=== PATIENT | female | born 1965 | race Caucasian/White ===

== ENCOUNTER 2021-01-20 22:48 | Emergency (ER) | payer OTHER, SELFPAY ==
[2021-01-20 22:58] VITALS: BP 139/79; PULSE 88; RESP 20; TEMP 36.6; O2SAT 100
--- NOTE | 2021-01-20 23:10 | ED_ITS ---
HPI - Skin/Abscess/Foreign Bdy General Chief complaint: Skin/Abscess/Foreign Body Stated complaint: red bump on chest is getting bigger Time Seen by Provider: 01/20/21 23:09 Source: patient Mode of arrival: Ambulatory Limitations: no limitations History of Present Illness HPI narrative: This is a 55-year-old female who comes emergency department for some concern for infection. Patient had a small bump which she believed was probably a cyst. Had a small amount of white material that she squeezed out on Monday.She then developed redness and swelling and pain that has extended several cm outwards over the last 3 days. Patient denies fevers. She denies any other symptoms. She denies any major medical issues besides taking a statin for dyslipidemia and medications for anxiety/depression. She denies any al lergies to medications. She has not had any additional drainage. Related Data Previous Rx's Medication Instructions Recorded cephalexin 500 mg capsule 500 mg PO Q6H #20 cap 01/20/21 Allergies Allergy/AdvReac Type Severity Reaction Status Date / Time Sulfa (Sulfonamide Allergy Unknown Verified 01/20/21 23:40 Antibiotics) Review of Systems Review of Systems ROS Unobtainable: All systems reviewed & are unremarkable except as noted in HPI and below Exam Narrative Exam Narrative: GENERAL: Alert and oriented x three, female in mild distress. HEENT: Head normocephalic, atraumatic, EOMI, pupils reactive, face symmetric, moist mucous membranes NECK: Supple, full range of motion CARDIOVASCULAR: Regular rate and rhythm without murmurs, rubs or gallops. Patient has a circular area of induration on her anterior chest that is about 3 cm in size. Indurated. With no fluctuance. Other skin changes noted. There is no obvious wound or open area of drainage. RESPIRATORY: Breath sounds equal bilaterally, no wheezes rales or rhonchi. ABDOMEN: Soft, nontender. Normoactive bowel sounds all 4 quadrants. No guarding or rebound, rigidity, no mass : No CVA tenderness EXTREMITIES: Normal range of motion, no clubbing or edema. Neurovascularly intact NEUROLOGICAL: Cranial nerves II through XII grossly intact. Moving all extremities SKIN: Warm, dry, no petechiae, no rashes or lesions other than noted above. Initial Vital Signs Initial Vital Signs: Vital Signs Temperature 97.8 F 01/20/21 22:58 Pulse Rate 88 10/13/21 22:58 Respiratory Rate 20 01/20/21 22:58 Blood Pressure 139/79 01/20/21 22:58 Pulse Oximetry 100 01/20/21 22:58 Course Orders Ordered: Discontinued Medications Cefazolin Sodium (Cephalexin 250 Mg Prepack) 1 bottle MIS SEEINSTR ONE Stop: 01/20/21 23:22 Last Admin: 01/20/21 23:48 Dose: 1 pack Documented by: EVAN Vital Signs Vital signs: Vital Signs - 8 hr 01/20/21 22:58 Temperature 97.8 F Pulse Rate 88 Respiratory Rate 20 Blood Pressure 139/79 Pulse Oximetry 100 MDM - Skin/Abscess/Foreign Bdy MDM Narrative Medical decision making narrative: 55-year-old female with localized cellulitis after squeezing fluid out of a cyst that is been on her chest for some of time. Patient does have some erythema in a circular surrounding area of induration. She was started on oral antibiotics with 1st dose given this evening. Warm compresses and return precautions discussed. We did discuss patient does not have any prior history of MRSA. Discharge Plan Departure Patient Disposition: Home Clinical Impression: Cellulitis Instructions: DI for Cellulitis -- Adult Activity Restrictions/Additional Instructions: Follow up in the next week if your infection has not completely resolved. Take oral antibiotics until completely gone. Prescription sent to [facility] in [place]. Use warm packs, hot washcloth or hot showers to the affected area 3 or 4 times daily. Please return for fevers, rapidly worsening redness, swelling, plain, for having new drainage, new chest pain or shortness of breath, passing out, vomiting, or other new or concerning symptoms. Prescriptions: New cephalexin 500 mg capsule 500 mg PO Q6H Qty: 20 RF: 0 Referrals: Lucie Hicks MD [Physician] -
[2021-01-20] MEDS: cephALEXin 250 MG PREPACK 1 BOTTLE MISC (23:48)
== END 2021-01-20 23:49 | disposition home or self-care (01) ==
PROVIDERS: Emergency Provider Emergency Medicine
DX: L03.319 Cellulitis of trunk, unspecified (principal)
CPT/HCPCS: 99281

== ENCOUNTER 2021-07-28 15:56 | Emergency (ER) | payer OTHER, SELFPAY ==
[2021-07-28] VITALS (8 sets, daily range): BP systolic 131–168; BP diastolic 77–90; PULSE 72–96; RESP 18–20; TEMP 36.4; O2SAT 94–99; BMI 39.1
[2021-07-28 16:30] LABS: Appearance Urine UA CLOUDY; Bilirubin Urine UA NEGATIVE (NEGATIVE); Color Urine UA ORANGE; Glucose Urine UA NEGATIVE (Negative); Ketones Urine UA NEGATIVE (NEGATIVE); Leukocyte Esterase Urine UA TRACE (NEGATIVE); Nitrite Urine UA NEGATIVE (Negative); Occult Blood Urine UA 3+ (Negative); Protein Urine UA 1+ (Negative); Specific Gravity Urine UA 1.015 (1.000-1.035); Urobilinogen Urine UA 0.2 E.U./dL (0.2)
[2021-07-28 16:46] LABS: Bacteria Urine None Seen; Culture Indicated Urine Specimen Cultured; RBC Urine >100/HPF (0-5/HPF); Squamous Epithelial Cell Urine 1-5 /HPF (0-5/HPF); WBC Urine 1-5/HPF (0-5/HPF)
--- NOTE | 2021-07-28 18:10 | DI.CT.S_ITS ---
PROCEDURE: CT KIDNEY URETER BLADDER (KUB) INDICATIONS: rt flank pain hx nephrolithiasis TECHNIQUE: Axial sections were acquired from the lung bases to the pubic symphysis. Coronal and sagittal reformats were performed. For radiation dose reduction, the following was used: automated exposure control, adjustment of mA and/or kV according to patient size. COMPARISON: Outside Film, CT, CT ABDOMEN PELVIS WITHOUT CONTRAST, 02/11/2020, 8:31. FINDINGS: Image quality: Excellent. Lung bases: Unremarkable. Heart: No significant findings. URINARY: Right Kidney: No stones or hydronephrosis. Right Ureter: No hydroureter. Left Kidney: Nonobstructing 4 mm intrapelvic calcification. No other collecting system calcifications. Left Ureter: No hydroureter. Bladder: Normal wall thickness. No stones. ABDOMEN: Liver: Unremarkable. Gallbladder: Decompressed. Biliary ducts: Nondilated Pancreas: Normal. Spleen: Normal. Adrenal Glands: No nodules. Stomach and Bowel: Stomach, small bowel loops, and colon are unremarkable. Surgically absent appendix. Peritoneum: No abnormal intraperitoneal fluid. No free air. Ventral Wall: No hernia. Abdominal Nodes: No enlarged retroperitoneal or mesenteric lymph nodes. Vessels: Aorta and inferior vena cava are normal in size. PELVIS: Pelvic Organs: Uterus and ovaries are normal. Pelvic Nodes: Unremarkable. Miscellaneous: No inguinal hernias are seen. Bones: Unremarkable. IMPRESSION: 1. No evidence of right urinary calcification or obstructive uropathy. 2. Nonobstructing 4 mm left renal pelvic calcification. 3. No explanation for right flank pain. Dictated by: Shaunna Bennett M.D. on 07/28/2021 at 18:53 Approved by: Shaunna Bennett M.D. on 07/28/2021 at 18:59
--- NOTE | 2021-07-28 18:10 | ED.FEMALEGU ---
HPI - Female Genitourinary <RUCHI Fields - Last Filed: 07/28/21 20:04> General Chief complaint: Urogenital-Female Stated complaint: BLOOD IN URINE RT SIDE PAIN Time Seen by Provider: 07/28/21 18:02 Source: patient Mode of arrival: Ambulatory History of Present Illness HPI Narrative: This is 55-year-old female with history of UTIs and kidney stones who presents to the emergency department with right flank pain which started last night and dark urine. Patient states that she went to the [facility] today, she completed a urinalysis, and was told that she did not have an infection and they were unable to help her further. Patient denies any fever, nausea vomiting, states that she has a urologist, it is Dr. Lockhart from [facility] and she has a history of kidney stones, denies any stents or surgical history of her abdomen. Patient endorses some right upper quadrant pain but denies any pain associated with food. She states that this has happened to her before with the right upper quadrant pain and it was kidney stones at that time as well. Patient denies any dysuria, pressure in her pelvic area, endorses right flank pain and tenderness. Denies any changes to her vaginal discharge. Related Data Previous Rx's Medication Instructions Recorded cephalexin 500 mg capsule 500 mg PO Q6H #20 cap 01/20/21 alprazolam 0.25 mg tablet (Xanax) 0.25 mg PO BID PRN #10 tab 07/28/21 cephalexin 500 mg capsule 500 mg PO BID 5 Days #10 cap 07/28/21 hydrocodone 5 mg-acetaminophen 325 1 tab PO Q8H PRN #10 tab 07/28/21 mg tablet ketorolac 10 mg tablet 10 mg PO Q8H PRN #14 tab 07/28/21 methocarbamol 500 mg tablet 500 mg PO TID #20 tab 07/28/21 tamsulosin 0.4 mg capsule 0.4 mg PO DAILY #20 cap 07/28/21 Allergies Allergy/AdvReac Type Severity Reaction Status Date / Time Sulfa (Sulfonamide Allergy Unknown Verified 01/20/21 23:40 Antibiotics) Review of Systems <RUCHI Fields - Last Filed: 07/28/21 20:04> Review of Systems Narrative: General: denies fever, chills, malaise, sweats, fatigue Head/Neck: denies headache, neck pain, dizziness Eyes: denies visual changes, eye pain Cardio: denies chest pain, palpitations, edema Respiratory: denies dyspnea, cough, orthopnea GI: denies abdominal pain, nausea, vomiting, or diarrhea : denies dysuria, endorses having dark urine/hematuria today, denies any urinary retention, frequency or incontinence, endorses right flank pain MSK: denies joint pain, muscle weakness Skin: denies rash, itching, skin lesions or other Neuro: denies numbness, tingling Exam <RUCHI Fields - Last Filed: 07/28/21 20:04> Narrative Exam Narrative: Independently reviewed vitals signs and nursing notes. General: cooperative, comfortable, in no acute distress, well developed and well groomed Head: atraumatic, symmetrical facial expressions Neck: supple, atraumatic, without lymphadenopathy. Eyes: pupils equal round and reactive, EOMI, conjunctiva normal Nose: nares patent, no rhinorrhea Mouth/Throat: uvula midline, moist mucus membranes Cardiovascular: regular rate and rhythm, no peripheral edema, warm extremities Respiratory: normal effort, able to speak in complete sentences, no audible wheezing, stridor, or rales. No retractions or tachypnea. GI: abdomen soft, nontender to palpation x4 quadrants, nondistended, no masses, no exquisite tenderness with exam, without guarding or rebound. CVA tenderness on right MSK: moves all extremities, ambulatory w/steady gait, neurovascularly intact, no weakness Skin: brisk capillary refill, no rash, no erythema Neuro: normal speech and cognition, A&O x3, normal tone Psych: mental status is grossly normal, congruent mood, normal affect, pleasant and cooperative Initial Vital Signs Initial Vital Signs: Vital Signs Temperature 97.5 F L 07/28/21 16:10 Pulse Rate 96 H 07/28/21 16:10 Respiratory Rate 20 07/28/21 16:10 Blood Pressure 168/90 H 07/28/21 16:10 Pulse Oximetry 99 07/28/21 16:10 Course <RUCHI Fields - Last Filed: 07/28/21 20:04> Orders Ordered: Discontinued Medications Acetaminophen (Acetaminophen 325 Mg Tablet) 975 mg PO NOW ONE Stop: 07/28/21 18:11 Last Admin: 07/28/21 18:29 Dose: 975 mg Documented by: KEITH Cephalexin HCl (Cephalexin 250 Mg Capsule) 500 mg PO NOW ONE Stop: 07/28/21 19:56 Last Admin: 07/28/21 19:59 Dose: 500 mg Documented by: FRITZ Ketorolac Tromethamine (Ketorolac 10 Mg Tablet) 10 mg PO NOW ONE Stop: 07/28/21 18:11 Last Admin: 07/28/21 18:28 Dose: 10 mg Documented by: KEITH Vital Signs Vital signs: Vital Signs - 8 hr 07/28/21 16:10 07/28/21 17:56 07/28/21 17:57 Temperature 97.5 F L Pulse Rate 96 H 88 88 Respiratory Rate 20 Blood Pressure 168/90 H 131/78 Pulse Oximetry 99 98 97 07/28/21 18:00 07/28/21 18:26 07/28/21 18:30 Temperature Pulse Rate 84 80 Respiratory Rate 18 Blood Pressure 148/83 H 157/84 H Pulse Oximetry 97 98 96 07/28/21 19:00 Temperature Pulse Rate 78 Respiratory Rate Blood Pressure Pulse Oximetry 94 MDM - Female Genitourinary <Ramya Lerma [facility] - Last Filed: 07/28/21 20:04> Lab Data Result diagrams: 07/28/21 17:15 07/28/21 19:15 Labs: Lab Results 07/28/21 07/28/21 07/28/21 Range/Units 16:18 17:15 19:15 WBC 10.7 (4.5-11.0) X10^3/uL RBC 4.73 (4.0-5.2) X10^6/uL Hgb 14.5 (12.0-16.0) g/dL Hct 41.7 (36-46) % MCV 88.3 (80-100) fL MCH 30.6 (26-34) PG MCHC 34.7 (30-36) % RDW 13.5 (11.6-14.8) % Plt Count 286 (150-400) X10^3/uL Neut % (Auto) 60.5 (50-75) % Lymph % (Auto) 28.4 (25-40) % [place] % (Auto) 7.5 (3-14) % Eos % (Auto) 2.8 (2-4) % Baso % (Auto) 0.8 (0-2) % Neut # (Auto) 6500 (1234-3139) /uL Lymph # (Auto) 3000 (0331-5296) /uL [place] # (Auto) 800 (0-900) /uL Eos # (Auto) 300 (0-450) /uL Baso # (Auto) 100 (0-100) /uL Sodium 138 (137-145) mmol/L Potassium 4.2 (3.4-5.1) mmol/L Chloride 106 (98-107) mmol/L Carbon Dioxide 24 (22-32) mmol/L BUN 17 (7-17) mg/dL Creatinine 0.99 (0.52-1.04) mg/dL Estimated GFR > 60 (>60) mL/min BUN/Creatinine Ratio 17.2 (6-22) Glucose 99 (70-100) mg/dL Lactate (0.7-2.1) mmol/L Calcium 10.0 (8.4-10.2) mg/dL Total Bilirubin 0.4 (0.2-1.3) mg/dL AST 29 (14-36) IU/L ALT 32 (<35) IU/L Alkaline Phosphatase 99 (38-126) U/L Total Protein 7.5 (6.3-8.2) g/dL Albumin 4.3 (3.5-5.0) g/dL Globulin 3.2 (1.7-4.1) g/dL Albumin/Globulin Ratio 1.3 (1.0-2.8) Urine Color [place] Urine Appearance Cloudy Urine pH 7.0 (4.5-8.0) Ur Specific [place] 1.015 (1.000-1.035) Urine Protein 1+ H (Negative) Urine Glucose (UA) Negative (Negative) g/dL Urine Ketones Negative (NEGATIVE) Urine Occult Blood 3+ H (Negative) Urine Nitrate Negative (Negative) Urine Bilirubin Negative (NEGATIVE) Urine Urobilinogen 0.2 (0.2) E.U./dL Ur Leukocyte Esterase Trace H (NEGATIVE) Urine RBC >100/hpf H (0-5/HPF) Urine WBC 1-5/hpf (0-5/HPF) Ur Squamous Epith Cells 1-5 /hpf (0-5/HPF) Urine Bacteria None seen (None) Ur Culture Indicated? Specimen cultured 07/28/21 Range/Units 19:15 WBC (4.5-11.0) X10^3/uL RBC (4.0-5.2) X10^6/uL Hgb (12.0-16.0) g/dL Hct (36-46) % MCV (80-100) fL MCH (26-34) PG MCHC (30-36) % RDW (11.6-14.8) % Plt Count (150-400) X10^3/uL Neut % (Auto) (50-75) % Lymph % (Auto) (25-40) % [place] % (Auto) (3-14) % Eos % (Auto) (2-4) % Baso % (Auto) (0-2) % Neut # (Auto) (9271-2234) /uL Lymph # (Auto) (0750-2929) /uL [place] # (Auto) (0-900) /uL Eos # (Auto) (0-450) /uL Baso # (Auto) (0-100) /uL Sodium (137-145) mmol/L Potassium (3.4-5.1) mmol/L Chloride (98-107) mmol/L Carbon Dioxide (22-32) mmol/L BUN (7-17) mg/dL Creatinine (0.52-1.04) mg/dL Estimated GFR (>60) mL/min BUN/Creatinine Ratio (6-22) Glucose (70-100) mg/dL Lactate 1.1 (0.7-2.1) mmol/L Calcium (8.4-10.2) mg/dL Total Bilirubin (0.2-1.3) mg/dL AST (14-36) IU/L ALT (<35) IU/L Alkaline Phosphatase (38-126) U/L Total Protein (6.3-8.2) g/dL Albumin (3.5-5.0) g/dL Globulin (1.7-4.1) g/dL Albumin/Globulin Ratio (1.0-2.8) Urine Color Urine Appearance Urine pH (4.5-8.0) Ur Specific [place] (1.000-1.035) Urine Protein (Negative) Urine Glucose (UA) (Negative) g/dL Urine Ketones (NEGATIVE) Urine Occult Blood (Negative) Urine Nitrate (Negative) Urine Bilirubin (NEGATIVE) Urine Urobilinogen (0.2) E.U./dL Ur Leukocyte Esterase (NEGATIVE) Urine RBC (0-5/HPF) Urine WBC (0-5/HPF) Ur Squamous Epith Cells (0-5/HPF) Urine Bacteria (None) Ur Culture Indicated? Imaging Data CT scan - abdomen/pelvis: Radiologist's Impression: PROCEDURE:? CT KIDNEY URETER BLADDER (KUB) ? INDICATIONS:? rt flank pain hx nephrolithiasis ? TECHNIQUE:? Axial sections were acquired from the lung bases to the pubic symphysis.? Coronal and sagittal reformats were performed.? For radiation dose reduction, the following was used: ?automated exposure control, adjustment of mA and/or kV according to patient size.? ? COMPARISON:? Outside Film, CT, CT ABDOMEN PELVIS WITHOUT CONTRAST, 02/11/2020, 8:31. ? FINDINGS:? Image quality:? Excellent.? ? Lung bases:? Unremarkable.? ? Heart:? No significant findings. ? URINARY: Right Kidney: ? No stones or hydronephrosis.? Right Ureter:? No hydroureter.? ? Left Kidney:? Nonobstructing 4 mm intrapelvic calcification.? No other collecting system calcifications.? Left Ureter:? No hydroureter.? ? Bladder:? Normal wall thickness. No stones. ? ? ? ABDOMEN: Liver:? Unremarkable.? ? Gallbladder:? Decompressed.? ? Biliary ducts:? Nondilated Pancreas:? Normal. Spleen:? Normal. Adrenal Glands:? No nodules. ? Stomach and Bowel:? Stomach, small bowel loops, and colon are unremarkable.? Surgically absent appendix. Peritoneum:? No abnormal intraperitoneal fluid.? No free air.? ? Ventral Wall: ? No hernia.? Abdominal Nodes:? No enlarged retroperitoneal or mesenteric lymph nodes.? Vessels:? Aorta and inferior vena cava are normal in size.? ? PELVIS: Pelvic Organs:? Uterus and ovaries are normal. Pelvic Nodes: Unremarkable. Miscellaneous: No inguinal hernias are seen. ? ? ? Bones:? Unremarkable. ? IMPRESSION:? ? 1. No evidence of right urinary calcification or obstructive uropathy.? ? 2. Nonobstructing 4 mm left renal pelvic calcification.? ? 3. No explanation for right flank pain.? ? MDM Narrative Medical decision making narrative: This is a 55-year-old female presents to the emergency department with right-sided flank pain which started last night, dark colored urine/hematuria and history of kidney stones and bladder infections. Patient denies any dysuria, urine shows 3+ blood with a trace of leukocytes, lab work obtained does not show any leukocytosis, no electrolyte abnormality, creatinine is 0.99 without any priors to compare to, lactate is 1.1, no elevation in LFTs, UA was cultured and is pending. CT KUB shows no evidence of right urinary calcification or obstructive uropathy, nonobstructing 4 mm left renal pelvic calcification, and no explanation for right flank pain. No hydroureter or hydronephrosis bilaterally, no perinephric stranding, bladder with normal wall thickness and no stones. Patient's complaint are fairly vague overall, it is reassuring to see that her lab work have any significant findings. Patient endorses that she has been under an increased amount of stress for the last few weeks she has an autistic child who was kicking her in the car yesterday she has these that she could be sore from this as potential option. Patient states that she is very stressed out, is currently on Wellbutrin and Celexa for her anxiety/depression and ongoing life complications. She states that she will follow-up with Dr. Roman from Urology and [facility] hawkins. Patient was given Flomax for her hematuria, treated with cephalexin as this may be a UTI, Toradol for pain, muscle relaxers for muscle tension and Xanax for her stress and anxiety. Recommend close follow-up with her providers. Patient was given strict return precautions for any vomiting, fever, worsening of her symptoms. Will follow up on her cultures. Patient is appropriate and amenable to discharge home. Vital signs are stable on repeat examination is unremarkable. Patient has been informed of results. Patient has been given strict return to ER precautions for any new or worsening symptoms. Patient understands to follow up closely with outpatient providers as instructed. Patient understands plan and agrees to discharge home. All questions and concerns answered at this time. Discharge Plan Departure Patient Disposition: Home Clinical Impression: Acute flank pain Hematuria Qualifiers: Hematuria type: unspecified type Qualified Code(s): R31.9 - Hematuria, unspecified Instructions: DI for Hematuria Activity Restrictions/Additional Instructions: *You have been diagnosed with flank pain with hematuria without any obstructing kidney stone. Because you have a history of this, and no other obvious reason to have blood in your urine, please start taking Flomax until you follow-up with Dr. Lockhart. Please call and make an appointment, I did not find any urologist with that name but I did find a Dr. Garner any Dr. Roman of [facility]. If it is either 1 of these please call their number and schedule an appointment. I am giving you a prescription of Keflex to treat a urinary infection although I am not sure that you have 1. Your urine has a trace of white blood cells, has a lot of blood in it, and it was sent for culture. We will call you if the culture grows any bacteria. Please go to your pharmacy, get your medicines for pain, anxiety, and muscle relaxers. I hope that you start feeling better soon, please follow-up with [facility] Hawkins as soon as your able. Your workup today is reassuring, please stay hydrated, and return for any worsening of her symptoms. *What to do: *Please continue to take your regular medications as directed. [x ] New medication prescriptions sent to your pharmacy: [ [facility]] [ ] New medication written as a paper prescription [ ] No new medications given *Please follow up with your primary care provider in 2-3 days, call for an appointment. Let them know you were seen in the Emergency Department and that we asked that you be seen for follow-up. We will electronically transmit a record of today's note if your PCP is in our system *If you do not have a primary care provider please contact [phone] to establish care with one of the [facility] primary care providers. *Return to Emergency Department if you should have any new, worsening or concerning symptoms, such as [fever greater than 101F, chills, worsening pain, persistent vomiting or other bothersome symptoms] Prescriptions: New methocarbamol 500 mg tablet 500 mg PO TID Qty: 20 0RF tamsulosin 0.4 mg capsule 0.4 mg PO DAILY Qty: 20 0RF alprazolam [Xanax] 0.25 mg tablet 0.25 mg PO BID PRN (Reason: anxiety) Qty: 10 0RF ketorolac 10 mg tablet 10 mg PO Q8H PRN (Reason: pain) Qty: 14 0RF Rx Instructions: flank pain hydrocodone-acetaminophen 5-325 mg tablet 1 tab PO Q8H PRN (Reason: pain) Qty: 10 0RF cephalexin 500 mg capsule 500 mg PO BID 5 Days Qty: 10 0RF No Action cephalexin 500 mg capsule 500 mg PO Q6H Qty: 20 0RF Referrals: Rolando Garner MD [Non-Staff] - Ab Roman DO [Non-Staff] - Heavenly Hawkins PA-C [Non-Staff] - 5-7 days
[2021-07-28] MEDS: KETOROLAC 10 MG TABLET PO (18:28)
[2021-07-28] MEDS: ACETAMINOPHEN 325 MG TABLET 975 MG PO (18:29)
[2021-07-28 19:30] LABS: Add Manual Diff / Slide Review NO; Basophils Absolute Auto 100 /uL (0-100); Basophils Percent Auto 0.8 % (0-2); Eosinophils Absolute Auto 300 /uL (0-450); Eosinophils Percent Auto 2.8 % (2-4); Hematocrit 41.7 % (36-46); Hemoglobin 14.5 g/dL (12.0-16.0); Lymphocytes Absolute Auto 3000 /uL (1100-4500); Lymphocytes Percent Auto 28.4 % (25-40); Mean Corpuscular HGB Conc 34.7 % (30-36); Mean Corpuscular Hemoglobin 30.6 PG (26-34); Mean Corpuscular Volume 88.3 fL (80-100); Monocytes Absolute Auto 800 /uL (0-900); Monocytes Percent Auto 7.5 % (3-14); Neutrophils Absolute Auto 6500 /uL (1500-7000); Neutrophils Percent Auto 60.5 % (50-75); Platelet Count 286 X10^3/uL (150-400); Red Blood Cell Count 4.73 X10^6/uL (4.0-5.2); Red Cell Distribution Width 13.5 % (11.6-14.8); White Blood Cell Count 10.7 X10^3/uL (4.5-11.0)
[2021-07-28 19:44] LABS: Alanine Aminotransferase 32 IU/L (<35); Albumin 4.3 g/dL (3.5-5.0); Albumin Globulin Ratio 1.3 (1.0-2.8); Alkaline Phosphatase 99 U/L (38-126); Aspartate Aminotransferase 29 IU/L (14-36); BUN Creatinine Ratio 17.2 (6-22); Bilirubin Total 0.4 mg/dL (0.2-1.3); Blood Urea Nitrogen 17 mg/dL (7-17); Carbon Dioxide 24 mmol/L (22-32); Chloride 106 mmol/L (98-107); Estimated Glomerular Filt Rate > 60 mL/min (>60); Globulin 3.2 g/dL (1.7-4.1); Glucose 99 mg/dL (70-100); HEMOLYSIS 17 (0-50); Lactate (Lactic Acid) 1.1 mmol/L (0.7-2.1); Potassium 4.2 mmol/L (3.4-5.1); Sodium 138 mmol/L (137-145); Total Protein 7.5 g/dL (6.3-8.2)
[2021-07-28] MEDS: cephALEXin 250 MG CAPSULE 500 MG PO (19:59)
== END 2021-07-28 20:14 | disposition home or self-care (01) ==
PROVIDERS: Emergency Medicine; Emergency Provider Nurse Practitioner Critical Care Medicine
DX: R10.9 Unspecified abdominal pain (principal); R31.9 Hematuria, unspecified; Z87.442 Personal history of urinary calculi; Z87.440 Personal history of urinary (tract) infections; Z88.2 Allergy status to sulfonamides
CPT/HCPCS: 36415; 74176; 80053; 81001; 83605; 85025; 87086; 99284